=== PATIENT | male | born 1960 | race Caucasian/White ===

== ENCOUNTER → 2022-05-22 | Outpatient (CLI) | payer BC ==
--- NOTE | 2022-05-22 13:57 | CT ---
EXAMINATION TYPE: CT chest w con DATE OF EXAM: 05/22/2022 COMPARISON: None HISTORY: chronic cough CT DLP: 541 mGycm Automated exposure control for dose reduction was used. TECHNIQUE: CT scan of the chest is performed with IV Contrast, patient injected with 70 mL of Isovue 300. MIP I mages are created on CT scanner and reviewed. 3D reconstructed images are created on an independent w orkstation and reviewed. FINDINGS: LUNGS: The lungs are grossly clear, there is no concerning parenchymal mass or nodule identified. T here is no pleural effusion or pneumothorax seen. The tracheobronchial tree is patent. MEDIASTINUM: There are no greater than 1 cm hilar or mediastinal lymph nodes. No pericardial effusi on is seen. OTHER: No additional significant abnormality is seen. IMPRESSION: No significant abnormality seen. No suspicious lung mass or nodule. No acute cardiopulmo nary disease.
== END | disposition home or self-care (01) ==
LOC: RADCTMAIN 12:39
PROVIDERS: ATTEND Internal Medicine
DX: R05.3 Chronic cough (principal)
CPT/HCPCS: 71260; Q9967

== ENCOUNTER → 2023-06-10 | Outpatient (CLI) | payer BC ==
[2023-06-10 21:32] LABS: Basophils # (A) 0.03 X 10*3/uL (0.00-0.10); Basophils % (A) 0.7 %; Eosinophils # (A) 0.18 X 10*3/uL (0.04-0.35); Eosinophils % (A) 4.5 %; HCT 39.8 % (39.6-50.0); HGB 12.5 g/dL (13.0-17.0); Lymphocytes # (A) 1.59 X 10*3/uL (0.90-5.00); Lymphocytes % (A) 39.5 %; MCH 28.7 pg (27.0-32.0); MCHC 31.4 g/dL (32.0-37.0); MCV 91.3 FL (80.0-97.0); Mean Platelet Volume 10.3 FL (9.5-12.2); Monocytes % (A) 9.9 %; NRBC Per 100 WBC 0 X 10*3/uL (0.00-0.01); Neutrophils # (A) 1.82 X 10*3/uL (1.80-7.70); Neutrophils % (A) 45.2 %; Platelet Count 264 X 10*3/uL (140-440); RBC 4.36 X 10*6/uL (4.40-5.60); RDW 15.9 % (11.5-14.5); WBC 4.03 X 10*3/uL (4.50-10.00)
[2023-06-10 21:59] LABS: Erythrocyte Sedimentation Rate 7 mm/Hr (0-20)
== END | disposition home or self-care (01) ==
LOC: LABWHC1 15:51
PROVIDERS: ATTEND Internal Medicine
DX: J18.9 Pneumonia, unspecified organism (principal); R05.9 Cough, unspecified
CPT/HCPCS: 36415; 82785; 85025; 85652; 86001; 86606; 86609